=== PATIENT | male | born 1990 ===

== ENCOUNTER 2017-04-04 19:54 | Emergency (ER) | payer SELFPAY ==
[~2017-04-04] VITALS: Ht 167.6 cm; Wt 79.5 kg
[~2017-04-04 19:54] MED LIST: ATIVAN 0.50.5 MG/TAB PO; NO HOME MEDICATIONS
[2017-04-04 20:02] VITALS: BP 132/77; TEMP 100.4
[2017-04-04 21:14] VITALS: PULSE 98
== END 2017-04-04 21:15 | disposition home or self-care (01) ==
LOC: COL.ER 19:54
DX: J11.1 Influenza due to unidentified influenza virus with other respiratory manifestations (principal); F41.9 Anxiety disorder, unspecified

== ENCOUNTER 2021-07-13 08:30 | Emergency (ER) | payer SELFPAY ==
[~2021-07-13] VITALS: Ht 167.6 cm; Wt 73.6 kg
[2021-07-13 08:43] VITALS: BP 136/90; TEMP 99.7
[2021-07-13 09:23] LABS: TRICYCLIC ANTIDEPRESS URINE NEGATIVE
[2021-07-13 09:30] LABS: BASO % 0.6 % (0.0-2.0); EOS % 0.1 % (0.0-4.0); GRAN # 5.4 K/mm3 (1.4-6.5); GRAN % 76.3 % (42.2-75.2); HEMATOCRIT 43.5 % (42.0-52.0); HEMOGLOBIN 15.6 g/dl (13.5-18.0); LYMPH # 1.2 K/mm3 (1.2-3.4); LYMPH % 17.4 % (20.0-51.0); MEAN CELL VOLUME 81 fl (80.0-100.0); MEAN CORPUSCULAR HEMOGLOBIN 29 pg (27-31); MEAN CORPUSCULAR HGB CONC 36 g/dl (33.0-37.0); MEAN PLATELET VOLUME 9.2 fl (7.4-10.4); MONO # 0.4 K/mm3 (0.1-0.6); MONO % 5.5 % (1.7-9.3); PLATELET COUNT 208 K/mm3 (130-400); RED BLOOD COUNT 5.37 M/mm3 (4.20-5.60); REDCELL DISTRIBUTION WIDTH-CV 13.7 % (11.5-14.5)
[2021-07-13 09:48] LABS: ALANINE AMINOTRANSFERASE 19 U/L (0-55); ALBUMIN 4.7 gm/dL (3.5-5.0); ALKALINE PHOSPHATASE 65 U/L (40-150); ANION GAP 16 mmol/L (7-16); AST,SGOT 29 U/L (5-34); BILIRUBIN,TOTAL 1.1 mg/dL (0.2-1.2); BLOOD UREA NITROGEN 19 mg/dL (9-21); CALCIUM 9.5 mg/dL (8.4-10.2); CARBON DIOXIDE 17 mmol/L (22-29); CHLORIDE 108 mmol/L (98-107); CREATININE, serum 1.11 mg/dL (0.72-1.25); GLUCOSE 110 mg/dL (70-99); POTASSIUM 3.4 mmol/L (3.5-4.5); SODIUM 141 mmol/L (136-145); TOTAL PROTEIN 8.5 gm/dL (6.2-8.1)
[2021-07-13 09:52] LABS: ACETAMINOPHEN < 1.0 ug/mL (10-30); ALCOHOL(ethanol),MEDICAL < 10 mg/dL (0-10); SALICYLATE < 5.0 mg/dL (15.0-30.0)
[2021-07-13 12:25] LABS: COLLECTION METHOD CLEAN CATCH
[2021-07-13 12:33] LABS: PH 6 (5-8); SQUAMOUS EPITHELIAL 0-2 /hpf (0-10); URINE APPEARANCE Clear (CLEAR/HAZY); URINE BACTERIA None Seen /hpf (NONE SEEN); URINE BILIRUBIN Negative (NEGATIVE); URINE BLOOD Negative (NEGATIVE); URINE COLOR Yellow (YELLOW); URINE GLUCOSE Negative (NEGATIVE); URINE KETONE 1+ (NEGATIVE); URINE LEUKOCYTE ESTERASE Negative (NEGATIVE); URINE NITRATE Negative (NEGATIVE); URINE PROTEIN(semi-quant) Negative (NEGATIVE); URINE RBC 0-2 /hpf (0-2); URINE UROBILINOGEN Negative (NEGATIVE)
[2021-07-13 17:30] VITALS: PULSE 65
== END 2021-07-13 17:30 | disposition home or self-care (01) ==
LOC: COL.ER 08:30
PROVIDERS: Family Medicine
DX: F19.10 Other psychoactive substance abuse, uncomplicated (principal); F22 Delusional disorders; Z20.822 Contact with and (suspected) exposure to COVID-19